=== PATIENT | male | born 1970 | race Caucasian/White ===

== ENCOUNTER 2019-04-16 08:51 | Inpatient (IN) | payer MEDICARE ==
[2019-04-16] MEDS ORDERED: SODIUM CHLORIDE 0.9% 1,000 ML IV STA (09:03)
[2019-04-16] MEDS ORDERED: LORazepam 2 MG/ML INJ IV STA (09:16)
[2019-04-16] MEDS ORDERED: MORPHINE SULFATE 4 MG/ML SYRINGE IV STA (09:17)
--- NOTE | 2019-04-16 09:22 | ED ---
General Adult HPI - General Chief complaint: Psychiatric Symptoms Stated complaint: Mental Health Time Seen by Provider: 04/16/19 08:56 Source: patient Mode of arrival: ambulatory Limitations: no limitations - History of Present Illness Initial comments: Dictation was produced using [employer] dictation software. please excuse any gramma tical, word or spelling errors. Chief Complaint: 48-year-old male past medical history multiple sclerosis presents with suicidal ideation. History of Present Illness: 48-year-old male presents with suicidal ideation. He wants to harm himself. Patient has history of multiple sclerosis. He has pain all over his body. Patient is not on any medications currently. He denies that he is supposed to be on any medications currently. Patient states that he is depressed because he has pain all over his body. He has been admitted to the hospital for suicidal ideation in the past. Patient states he second tired of the chronic pain. He wants to drive his car into the water. Denies any visual or auditory hallucinations. Patient has no new complaints at this time. The ROS documented in this emergency department record has been reviewed and confirmed by me. Those systems with pertinent positive or negative responses have been documented in the HPI. All other systems are other negative and/or noncontributory. PHYSICAL EXAM: General Impression: Alert and oriented x3, not in acute distress HEENT: Normocephalic atraumatic, extra-ocular movements intact, pupils equal and reactive to light bilaterally, mucous membranes moist. Cardiovascular: Heart regular rate and rhythm, S1&S2 audible, no murmurs, rubs or gallops Chest: Lungs clear to auscultation bilaterally, no rhonchi, no wheeze, no rales Abdomen: Bowel sounds present, abdomen soft, non-tender, non-distended, no org anomegaly Musculoskeletal: Pulses present and equal in all extremities, no peripheral edema Motor: no focal deficits noted Neurological: CN II-XII grossly intact, no focal motor or sensory deficits noted Skin: Intact with no visualized rashes Psych: Flat affect ED course: 48 yo Male presents with suicidal ideation. As upon arrival shows heart rate of 127, worse vital signs within acceptable limits. he has detailed suicidal intention. Patient given intravenous fluids. He states that he has significant pain. He is given analgesia and anxiolytics. Patient was observed in emergency department for several hours. He was cleared medically. Patient evaluated by EPS recommended inpatient admission. - Related Data Home Medications Medication Instructions Recorded Confirmed Atorvastatin Calcium [Lipitor] 10 mg PO DAILY 04/16/19 04/16/19 DULoxetine HCL [Cymbalta] 30 mg PO TID 04/16/19 04/16/19 Allergies Allergy/AdvReac Type Severity Reaction Status Date / Time Latex, Natural Rubber Allergy Rash/Hives Verified 04/16/19 11:30 metronidazole [From Flagyl] Allergy Unknown Verified 04/16/19 11:30 Review of Systems ROS Statement: Those systems with pertinent positive or pertinent negative responses have been documented in the HPI. ROS Other: All systems not noted in ROS Statement are negative. Past Medical History Past Medical History: GERD/Reflux, Neurologic Disorder Additional Past Medical History / Comment(s): ms History of Any Multi-Drug Resistant Organisms: None Reported Past Surgical History: No Surgical Hx Reported Past Psychological History: Anxiety, Depression, Panic Disorder Smoking Status: Current every day smoker Past Alcohol Use History: Rare Past Drug Use History: Marijuana General Exam Limitations: no limitations Course Vital Signs 04/16/19 08:59 Temperature 97.8 F Pulse Rate 127 H Respiratory 16 Rate Blood Pressure 146/89 O2 Sat by Pulse 97 Oximetry Medical Decision Making - Lab Data Result diagrams: 04/17/19 07:29 04/17/19 07:29 Lab Results 04/16/19 04/16/19 04/16/19 Range/Units 09:27 09:27 11:59 WBC 8.1 (3.8-10.6) k/uL RBC 4.73 (4.30-5.90) m/uL Hgb 14.9 (13.0-17.5) gm/dL Hct 44.9 (39.0-53.0) % MCV 94.9 (80.0-100.0) fL MCH 31.6 (25.0-35.0) pg MCHC 33.3 (31.0-37.0) g/dL RDW 13.5 (11.5-15.5) % Plt Count 315 (150-450) k/uL Neutrophils % 58 % Lymphocytes % 30 % Monocytes % 7 % Eosinophils % 2 % Basophils % 2 % Neutrophils # 4.7 (1.3-7.7) k/uL Lymphocytes # 2.4 (1.0-4.8) k/uL Monocytes # 0.6 (0-1.0) k/uL Eosinophils # 0.2 (0-0.7) k/uL Basophils # 0.1 (0-0.2) k/uL Sodium 140 (137-145) mmol/L Potassium 3.8 (3.5-5.1) mmol/L Chloride 106 (98-107) mmol/L Carbon Dioxide 24 (22-30) mmol/L Anion Gap 10 mmol/L BUN 14 (9-20) mg/dL Creatinine 0.70 (0.66-1.25) mg/dL Est GFR (CKD-EPI)AfAm >90 (>60 ml/min/1.73 sqM) Est GFR (CKD-EPI)NonAf >90 (>60 ml/min/1.73 sqM) Glucose 113 H (74-99) mg/dL Calcium 10.3 H (8.4-10.2) mg/dL Urine Color Light Yellow Urine Appearance Clear (Clear) Urine pH 7.5 (5.0-8.0) Ur Specific [place] 1.006 (1.001-1.035) Urine Protein Negative (Negative) Urine Glucose (UA) Negative (Negative) Urine Ketones Negative (Negative) Urine Blood Negative (Negative) Urine Nitrite Negative (Negative) Urine Bilirubin Negative (Negative) Urine Urobilinogen <2.0 (<2.0) mg/dL Ur Leukocyte Esterase Negative (Negative) Disposition Clinical Impression: Suicidal ideation Disposition: ADMITTED IP TO THIS [facility] Condition: Fair Decision Time: 06:58
[2019-04-16 09:39] LABS: Basophils # (A) 0.1 k/uL (0-0.2); Basophils % (A) 2 %; Eosinophils # (A) 0.2 k/uL (0-0.7); Eosinophils % (A) 2 %; HCT 44.9 % (39.0-53.0); HGB 14.9 gm/dL (13.0-17.5); Lymphocytes # (A) 2.4 k/uL (1.0-4.8); Lymphocytes % (A) 30 %; MCH 31.6 pg (25.0-35.0); MCHC 33.3 g/dL (31.0-37.0); MCV 94.9 fL (80.0-100.0); Mean Platelet Volume 6.3; Monocytes # (A) 0.6 k/uL (0-1.0); Monocytes % (A) 7 %; Neutrophils # (A) 4.7 k/uL (1.3-7.7); Neutrophils % (A) 58 %; Platelet Count 315 k/uL (150-450); RBC 4.73 m/uL (4.30-5.90); RDW 13.5 % (11.5-15.5); WBC 8.1 k/uL (3.8-10.6)
[2019-04-16 09:53] LABS: African American GFR (CKD) >90 (>60 ml/min/1.73 sqM); Anion Gap 10 mmol/L; Blood Urea Nitrogen 14 mg/dL (9-20); Calcium 10.3 mg/dL (8.4-10.2); Carbon Dioxide 24 mmol/L (22-30); Chloride 106 mmol/L (98-107); Glucose 113 mg/dL (74-99); Potassium 3.8 mmol/L (3.5-5.1); Sodium 140 mmol/L (137-145)
[2019-04-16 12:28] LABS: Appearance,Urine Clear (Clear); Bilirubin,Urine Negative (Negative); Blood,Urine Negative (Negative); Color,Urine Light Yellow; Glucose,Urine (UA) Negative (Negative); Ketones,Urine Negative (Negative); Leukocyte Esterase,Urine Negative (Negative); Nitrite,Urine Negative (Negative); PH, Urine 7.5 (5.0-8.0); Protein,Urine Negative (Negative); Specific Gravity,Urine 1.006 (1.001-1.035); Urobilinogen,Urine <2.0 mg/dL (<2.0)
[2019-04-16] MEDS ORDERED: ZIPRASIDONE 20 MG VIAL IM PRN (14:57)
[2019-04-17 08:16] LABS: Basophils # (A) 0.1 k/uL (0-0.2); Basophils % (A) 1 %; Eosinophils # (A) 0.2 k/uL (0-0.7); Eosinophils % (A) 2 %; HCT 46.2 % (39.0-53.0); HGB 15.7 gm/dL (13.0-17.5); Lymphocytes # (A) 3.1 k/uL (1.0-4.8); Lymphocytes % (A) 38 %; MCH 32.8 pg (25.0-35.0); MCHC 33.9 g/dL (31.0-37.0); MCV 96.6 fL (80.0-100.0); Mean Platelet Volume 5.7; Monocytes # (A) 0.5 k/uL (0-1.0); Monocytes % (A) 6 %; Neutrophils # (A) 4.2 k/uL (1.3-7.7); Neutrophils % (A) 51 %; Platelet Count 298 k/uL (150-450); RBC 4.78 m/uL (4.30-5.90); RDW 13.3 % (11.5-15.5); WBC 8.2 k/uL (3.8-10.6)
[2019-04-17] MEDS: NICOTINE 14MG/24HR PATCH TRANSDERM SCH (08:24)
[2019-04-17 08:37] LABS: ALT 18 U/L (21-72); AST 23 U/L (17-59); African American GFR (CKD) >90 (>60 ml/min/1.73 sqM); Albumin 4.8 g/dL (3.5-5.0); Alkaline Phosphatase 72 U/L (38-126); Anion Gap 11 mmol/L; Blood Urea Nitrogen 14 mg/dL (9-20); Calcium 10.1 mg/dL (8.4-10.2); Carbon Dioxide 27 mmol/L (22-30); Chloride 106 mmol/L (98-107); Cholesterol 243 mg/dL (<200); Glucose 90 mg/dL (74-99); HDL Cholesterol 34 mg/dL (40-60); LDL Cholesterol,Calculated 183 mg/dL (0-99); Potassium 4.1 mmol/L (3.5-5.1); Sodium 144 mmol/L (137-145); Total Protein 7.5 g/dL (6.3-8.2); Triglycerides 128 mg/dL (<150)
[2019-04-17 12:54] VITALS: BMI 20.3
[2019-04-17] MEDS: DULoxetine HCL 30 MG CAPSULE.DR PO SCH (13:56)
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
[2019-04-17 14:23] LABS: Hemoglobin A1C 5.5 % (4.0-6.0)
--- NOTE | 2019-04-17 17:22 | P.MDCNMH ---
History of Present Illness H&P Date: 04/17/19 Chief Complaint: Whole body aches 48-year-old male with PMH of multiple sclerosis presents to the ED for suicidal ideation. [facility] physicians has been consulted for medical management of this patient. Patient reports left shoulder pain that has been ongoing for the past 2 years. He describes the pain as muscular soreness. Patient reports being started on OxyContin, fentanyl and Botox in the past, "years ago"while he was followed by pain clinic. Patient reports occipital headache that is also chronic in nature. Patient reports difficulty ambulating due to chronic left-sided weakness, ambulates with a wheelchair. The pain in his shoulder radiates down to the thum b. Patient states that these problems are chronic and has been ongoing for many years. Patient reports numbness in his bilateral lower extremity. He also reports some difficulty initiating urination. Patient reports constipation as his last bowel movement one was 1 week ago. Patient reports seeing a neurologist in the past, Dr. Chao but has not been able to see him in the last couple of years. He does report having an appointment on April 27 at [facility] in [place]. He denies any lower extremity edema, nausea or vomiting, fever or chills, cough, chest pain, shortness of breath. No changes in appetite or weight. Patient denies any dizziness as well. His vital signs have been stable except for tachycardia with a pulse of 127. His CBC was within normal limits. CMP is also within normal limits. Lipid panel shows total cholesterol 243, LDL 183. Urinalysis was negative. EKG showed normal sinus rhythm. Review of Systems Pertinent positives and negatives as discussed in HPI, a complete review of sy stems was performed and all other systems are negative. Past Medical History Past Medical History: GERD/Reflux, Neurologic Disorder Additional Past Medical History / Comment(s): ms History of Any Multi-Drug Resistant Organisms: None Reported Past Surgical History: No Surgical Hx Reported Past Anesthesia/Blood Transfusion Reactions: No Reported Reaction Past Psychological History: Anxiety, Depression, Panic Disorder Smoking Status: Current every day smoker Past Alcohol Use History: Rare Past Drug Use History: Marijuana Additional Drug Use History / Comment(s): not using currently. Medications and Allergies Home Medications Medication Instructions Recorded Confirmed Type Atorvastatin Calcium [Lipitor] 10 mg PO DAILY 04/16/19 04/16/19 History DULoxetine HCL [Cymbalta] 30 mg PO TID 04/16/19 04/16/19 History Allergies Allergy/AdvReac Type Severity Reaction Status Date / Time Latex, Natural Rubber Allergy Rash/Hives Verified 04/16/19 11:30 metronidazole [From Flagyl] Allergy Unknown Verified 04/16/19 11:30 Physical Exam Vitals: Vital Signs Temp Pulse Resp BP 04/17/19 06:52 97.6 F 108 H 18 127/65 Intake and Output 04/17/19 04/17/19 04/17/19 06:59 14:59 22:59 Other: Weight 68.039 kg General: [non toxic], [tremulous], [appears at stated age] Derm: [warm], [dry] Head: [atraumatic], [normocephalic], [symmetric] Eyes: [EOMI], [no lid lag], [anicteric sclera] Mouth: [no lip lesion], [mucus membranes moist] Cardiovascular: [S1S2 reg], [no murmur], [positive DP pulse bilateral], Lungs: [CTA bilateral], [no rhonchi, no rales] , [no accessory muscle use] Abdominal: [soft], [ nontender to palpation], [no guarding], [no appreciable organomegaly] Ext: [no gross muscle atrophy], [no edema], [limited range of motion of the left shoulder due to pain] Neuro: [ CN II-XI grossly intact], [strength is 2 out of 5 in the left upper and lower extremities, 5 out of 5 in the right upper and lower extremities], [sensation is intact to touch but decreased on the left side] Psych: [Alert], [oriented], [appropriate affect] Cranial Nerve Examination - Cranial Nerves Cranial Nerve II- Optic: Intact Cranial Nerve III- Oculomotor: Intact Cranial Nerve IV- Trochlear: Intact Cranial Nerve V- Trigeminal: Intact Cranial Nerve - Abducens: Intact Cranial Nerve VII- Facial: Intact Cranial Nerve VIII- Auditory: Intact Cranial Nerve IX- Glossopharyngeal: Intact Cranial Nerve X- Vagus: Intact Cranial Nerve XI- Accessory: Intact Cranial Nerve XII- Hypoglossal: Intact Results CBC & Chem 7: 04/17/19 07:29 04/17/19 07:29 Labs: Abnormal Lab Results - Last 24 Hours (Table) 04/17/19 Range/Units 07:29 ALT 18 L (21-72) U/L Cholesterol 243 H (<200) mg/dL LDL Cholesterol, Calc 183 H (0-99) mg/dL HDL Cholesterol 34 L (40-60) mg/dL Assessment and Plan Assessment: Assessment and Plan Multiple sclerosis with chronic left-sided weakness and numbness in the bilateral lower extremities Hyperlipidemia Constipation Patient has a history of multiple sclerosis for which he used to follow-up with Dr. Chao but has been unable to do so in the past 2 years. Plans: He has an appointment with [facility] in [place] on . If patient is unable to make it to this appointment, please consider rescheduling. His symptoms of left-sided weakness and numbness in the bilateral lower extremities has been chronic and ongoing for the past 2 years and as such I do not believe this is a flare. I believe we should continue to monitor the patient at this time. He would benefit from physical therapy and occupational therapy. He would also benefit from antispastic medication such as baclofen and pain control. I will defer this decision to psychiatry. He is been noted to have elevated cholesterol. He has been started on Lipitor 10 mg by mouth at bedtime. Patient reports his last bowel movement was 1 week ago. Aggressive bowel regimen with milk of magnesia as needed will be started. Thank you for this consult. Please call with any additional questions or concerns.
[2019-04-18] MEDS: MAGNESIUM HYDROXIDE 2,400 MG/10 ML CUP PO PRN (06:47)
[2019-04-18] MEDS: NICOTINE 14MG/24HR PATCH TRANSDERM SCH (07:51)
[2019-04-18] MEDS: ATORVASTATIN 10 MG TAB PO SCH (07:51)
[2019-04-18] MEDS: DULoxetine HCL 30 MG CAPSULE.DR PO SCH (07:51)
[2019-04-18] MEDS: LORazepam 1 MG TAB PO PRN (07:52)
--- NOTE | 2019-04-18 12:53 | P.PN ---
Progress Note - Text Interval history: The patient is found in his room he follows me to an interview room. He indicates his mood is a little better he feels safe. He has no questions or concerns regarding the medication. We plan on titrating the Cymbalta to 120 mg today and he is agreeable. He has not been attending many groups he is encouraged to do so to maximize his treatment here and to allow us to fully evaluate him. He did have a visit from his stepson last evening which was supportive. He describes having difficulty with constipation. Mental status exam: The patient is a thin male he is mobile with a wheelchair. He is dressed in his own clothing. Hygiene grooming adequate. Speech is fluent spontaneous nonpressured. He does appear more calm than yesterday. He endorses a depressed mood with anxiety. He reports feeling safe here in the hospital in terms of suicidal thoughts. He indicates he doesn't really want to but was feeling hopeless. He demonstrates no evidence of any psychosis hypomania or judson. He demonstrates no verbal or physical aggressiveness. Affect is constricted throughout the session. Plan: The patient will continue on the Cymbalta we will titrate this to 120 mg daily. We will ask for some recommendations regarding his ongoing constipation from internal medicine. Vital signs reviewed. We will monitor him for safety. He is encouraged to participate in the milieu more fully.
[2019-04-18] MEDS: DULoxetine HCL 30 MG CAPSULE.DR PO ONE ×2 (13:05→13:06)
[2019-04-18] MEDS: MAG HYDROX/AL HYDROX/SIMETH 30 ML CUP PO PRN (13:07)
[2019-04-19] MEDS: NICOTINE 14MG/24HR PATCH TRANSDERM SCH (08:55)
[2019-04-19] MEDS: ATORVASTATIN 10 MG TAB PO SCH (08:56)
[2019-04-19] MEDS: LORazepam 1 MG TAB PO PRN (08:57)
[2019-04-19] MEDS: DULoxetine HCL 60 MG CAPSULE.DR PO SCH (08:59)
[2019-04-19] MEDS ORDERED: BACLOFEN 10 MG TAB PO PRN ×2 (13:55→14:55)
--- NOTE | 2019-04-19 14:54 | P.PN ---
Progress Note - Text Progress Note Date: 04/19/19 Interval History: Patient was seen in the [facility] watching TV and reading and was agreeable to sp cliffordk to sba underwriter in the office. Patient was cooperative and directable during conversation and spoke about the circumstances behind his presentation to the hospital. He states that he has been feeling chronically depressed since being diagnosed with MS approximately 7 years ago. He states that he does have significant pain and muscle spasticity and has been noticing an increase in his symptoms associated with MS as he has been off treatment and has not seen a neurologist in quite some time. He states that he was self-medicating with cannabis. Patient claims that his depression has been increasing and was having suicidal thoughts. He states that his Cymbalta was recently increased to 120 mg today. Patient continues to complain of anxiety and muscle spasms. He also describes poor sleep approximately 2 hours at night. He states that he's only been to a few groups. At this time patient denies any suicidal or homical ideations, intent or plan. Patient denies any auditory, visual hallucinations and denies any paranoia or delusions. Patient denies any side effects from the medications and has been compliant with meds. Mental Status Exam: General Appearance: Patient appears to be stated age is alert, directable, and cooperative. Patient is in a wheelchair and does have mild tremors in his hands. Marginal hygiene and grooming. Behavior: Patient is calmly seated without any agitated behavior. Speech: Patient's speech is fluent and nonpressured. Mood/Affect: Mood is improving mildly, affect is congruent and constricted. Significant anxiety. Suicidality/Homicidality: Patient denies having any suicidal or homicidal ideation intent or plan. Perceptions: Patient denies any auditory or visual hallucinations. Though content/process: There is no evidence of any delusional thought content and thought process is linear and goal-directed. Memory and concentration: AOX3, grossly intact for the purposes of this session Judgment and insight: fair Assessment Major depressive disorder, recurrent, severe Anxiety disorder unspecified Cannabis use disorder Nicotine dependence Plan: -Patient continues to meet criteria for inpatient psychiatric admission for symptom stabilization and safety. Patient has signed adult voluntary form and medication consent and was placed in patient's chart. -Medications: Cymbalta was increased to 120 mg daily for depression. Will start patient on baclofen 5 mg 3 times a day for muscle spasms associated with his MS. We'll also start patient on BuSpar 10 mg twice a day for anxiety and trazodone 25 mg daily at bedtime for insomnia and mood. -Patient has a follow-up appointment scheduled with [facility] on 04/27/2019. -When necessary Ativan for agitation/aggression. -NRT - nicotine patch -SW on board for discharge planning.
[2019-04-19] MEDS ORDERED: BACLOFEN 10 MG TAB PO SCH (16:00)
[2019-04-19] MEDS: BACLOFEN 10 MG TAB PO SCH (20:41)
[2019-04-19] MEDS: busPIRone HCl 10 MG TAB PO SCH (20:41)
[2019-04-19] MEDS ORDERED: traZODone HCL 50 MG TAB PO SCH (21:00)
[2019-04-19] MEDS: PANTOPRAZOLE 40 MG TABLET PO SCH (22:01)
[2019-04-20] MEDS: NICOTINE 14MG/24HR PATCH TRANSDERM SCH (08:23)
[2019-04-20] MEDS: busPIRone HCl 10 MG TAB PO SCH (08:24)
[2019-04-20] MEDS: BACLOFEN 10 MG TAB PO SCH ×2 (08:24→20:47)
[2019-04-20] MEDS: ATORVASTATIN 10 MG TAB PO SCH (08:24)
[2019-04-20] MEDS: DULoxetine HCL 60 MG CAPSULE.DR PO SCH (08:24)
--- NOTE | 2019-04-20 11:32 | P.PN ---
Progress Note - Text Progress Note Date: 04/20/19 Interval History: Patient was seen laying down in his bed and was agreeable to speak to automobile and property underwriter in the office. Patient was cooperative and directable during conversation this morning however appear to continue to have a depressed affect. Patient did state that she feels mild improvement with regards to his depression however feels that his anxiety is still a problem for him. Patient did claim that his sleep was improved last night however was requesting to have his trazodone increased to 50 mg. He states that he was trying to go to groups yesterday and will continue to try today depending on how he is feeling. He states that his muscle spasms continue and may have seen some mild improvement. Patient also stated that he had some restless leg yesterday at daytime. At this time patient denies any suicidal or homical ideations, intent or plan. Patient denies any auditory, visual hallucinations and denies any paranoia or delusions. Patient denies any side effects from the medications and has been compliant with meds. Mental Status Exam: General Appearance: Patient appears to be stated age is alert, directable, and cooperative. Patient is in a wheelchair and does have mild tremors in his hands. Marginal hygiene and grooming. Behavior: Patient is calmly seated without any agitated behavior. Speech: Patient's speech is fluent and nonpressured. Mood/Affect: Mood is improving mildly, affect is congruent and constricted. Significant anxiety. Suicidality/Homicidality: Patient denies having any suicidal or homicidal ideation intent or plan. Perceptions: Patient denies any auditory or visual hallucinations. Though content/process: There is no evidence of any delusional thought content and thought process is linear and goal-directed. Memory and concentration: AOX3, grossly intact for the purposes of this session Judgment and insight: fair Assessment Major depressive disorder, recurrent, severe Anxiety disorder unspecified Cannabis use disorder Nicotine dependence Plan: -Patient continues to meet criteria for inpatient psychiatric admission for symptom stabilization and safety. Patient has signed adult voluntary form and medication consent and was placed in patient's chart. -Medications: Cymbalta 120 mg daily for depression. Will continue with baclofen 5 mg 3 times a day for muscle spasms associated with his MS. We'll increase BuSpar 15 mg twice a day for anxiety and increase trazodone 50 mg daily at bedtime for insomnia and mood. -Patient has a follow-up appointment scheduled with [place] [facility] on 04/27/2019. -When necessary Ativan for agitation/aggression. -NRT - nicotine patch -Patient was encouraged to partake in groups during the day work on his coping skills and distress tolerance. -SW on board for discharge planning.
[2019-04-20] MEDS: busPIRone HCl 5 MG TAB PO SCH ×2 (13:23→20:47)
[2019-04-20] MEDS: PANTOPRAZOLE 40 MG TABLET PO SCH (20:47)
[2019-04-20] MEDS: traZODone HCL 50 MG TAB PO SCH (20:47)
[2019-04-21] MEDS: BACLOFEN 10 MG TAB PO SCH ×3 (08:17→20:50)
[2019-04-21] MEDS: DULoxetine HCL 60 MG CAPSULE.DR PO SCH (08:17)
[2019-04-21] MEDS: busPIRone HCl 5 MG TAB PO SCH ×2 (08:17→20:50)
[2019-04-21] MEDS: NICOTINE 14MG/24HR PATCH TRANSDERM SCH (08:17)
[2019-04-21] MEDS: ATORVASTATIN 10 MG TAB PO SCH (08:18)
--- NOTE | 2019-04-21 11:30 | P.PN ---
Progress Note - Text Progress Note Date: 04/21/19 Interval History: Patient was seen laying down in his bed and was agreeable to speak to song writer in the office this morning. Patient was cooperative and directable during conversation has a mildly improved affect. Patient continues to state that he is feeling somewhat better with regards to his depression and his anxiety and feels that the medications are starting to work for him. Patient stated that she did hear a lot of noise in the hallway when the new patients arrived which was disruptive to his sleep however did state that he was able to sleep after that. He states that he did attend groups yesterday and is finding them helpful in his recovery. He states that his muscle spasms continue however are mildly improving, and now is complaining of some difficulties with urinary retention and also pain related to his MS. Patient states that he would like to have an evaluation/consult by the neurologist for any further recommendations. He states his energy level and appetite are fair. At this time patient denies any suicidal or homical ideations, intent or plan. Patient denies any auditory, visual hallucinations and denies any paranoia or delusions. Patient denies any side effects from the medications and has been compliant with meds. Mental Status Exam: General Appearance: Patient appears to be stated age is alert, directable, and cooperative. Patient is in a wheelchair and shows an improvement in tremors in his hands. Marginal hygiene and grooming. Behavior: Patient is calmly seated without any agitated behavior. Speech: Patient's speech is fluent and nonpressured. Mood/Affect: Mood is improving mildly, affect is congruent and constricted. Less anxiety. Suicidality/Homicidality: Patient denies having any suicidal or homicidal ideation intent or plan. Perceptions: Patient denies any auditory or visual hallucinations. Though content/process: There is no evidence of any delusional thought content and thought process is linear and goal-directed. Memory and concentration: AOX3, grossly intact for the purposes of this session Judgment and insight: fair, improving mildly Assessment Major depressive disorder, recurrent, severe Anxiety disorder unspecified Cannabis use disorder Nicotine dependence Plan: -Patient continues to meet criteria for inpatient psychiatric admission for symptom stabilization and safety. Patient has signed adult voluntary form and medication consent and was placed in patient's chart. -Medications: Cymbalta 120 mg daily for depression. Will continue with baclofen 5 mg 2 times a day for muscle spasms associated with his MS. We'll continue with BuSpar 15 mg twice a day for anxiety and continue with trazodone 50 mg daily at bedtime for insomnia and mood. -Neurology consult to for pain, muscle spasms and urinary retention related to patient's MS. -Patient has a follow-up appointment scheduled with [place] [facility] on 04/27/2019. -When necessary Ativan for agitation/aggression. -NRT - nicotine patch -Patient was encouraged to partake in groups during the day work on his coping skills and distress tolerance. -SW on board for discharge planning.
[2019-04-21] MEDS ORDERED: BACLOFEN 10 MG TAB PO PRN (15:48)
[2019-04-21] MEDS: PANTOPRAZOLE 40 MG TABLET PO SCH (20:50)
[2019-04-21] MEDS: traZODone HCL 50 MG TAB PO SCH (20:50)
--- NOTE | 2019-04-21 22:18 | P.CNNES ---
History of Present Illness Consult date: 04/21/19 Reason for Consult: Muscle spasm, pain, urine retention, multiple sclerosis Chief complaint: Muscle spasm, pain, urine retention, multiple sclerosis History of Present Illness: HISTORY OF PRESENT ILLNESS: Thank you for allowing me to evaluate Mr. Urbano Lopez. Mr. Lopez, is a 48-year-old man with past medical history of multiple sclerosis, GERD, anxiety, depression, panic disorder, hyperlipidemia, who presented to [facility] for suicidal ideation, consulted neurology for muscle spasm, pain and urinary retention. Patient states that he was diagnosed with MS is 2011. He was treated with avonex, betaseron and copaxone initially, but patient stopped seeing his neurologist and getting treatment for MS after he moved to [facility] from [place] several years ago (states he moved for his girlfriend). Patient reports that his symptoms were always L-sided with pain and numbness/tingling. His flares always involved worsening L-sided pain/numbness along with tremor, and patient believes that he's having an MS flare at this time. Patient was treated with steroids previously for his MS flares, but his L-sided symptoms never fully recovered. Patient denies any recent sickness, fevers, diarrhea, constipation, double/blurry vision, coughing, CP, or SOB. PAST MEDICAL HISTORY: Multiple sclerosis, GERD, anxiety, depression, panic disorder, hyperlipidemia PAST SURGICAL HISTORY: None reported HOME MEDICATIONS: Duloxetine, atorvastatin ALLERGIES: Latex, rubber, metronidazole SOCIAL HISTORY: Current every day smoker. Social drinker. He endorses marijuana use REVIEW OF SYSTEMS: The 14 systems are reviewed and no additional points are identified compared to the review of systems documented history and physical PHYSICAL EXAMINATION: VITAL SIGNS: T 97.7 HR 101 RR 16 BP 135/74 O2 sat 94% on RA GEN.: NAD, pleasant and cooperative HEENT: NCAT, sclera without icterus NECK: Supple SKIN AND EXTREMITIES: Warm to touch, no edema NEURO: MENTAL STATUS: [Patient alert and oriented to self, place, time. Able to name the current president. Speech fluent, able to name and repeat, following all commands readily. No right and left disorientation, neglect. CRANIAL NERVES II THROUGH XII: II: Pupils are equal and reactive to light symmetrically. No afferent pupillary defect. Visual higginbotham are intact. III, IV, : No ptosis. Extraocular movements full. No nystagmus. V: Facial sensation decreased in L V2. VII. No clear facial asymmetry. VIII: Hearing intact to finger rub bilaterally. IX, X: Symmetric palate elevation. XI: Shoulder shrug intact. XII: Tongue midline without fasciculation or atrophy. MOTOR: Normal bulk/tone. LUE drifts down and RUE drifts up. Whole-body tremor, more in UE than LE but switches and diminishes when patient focused (i.e. naming names of the month backwards). LUE 4/5 RUE 5/5 but no satelliting. 4/5 in b/l LE. SENSORY: Decreased to light touch in LUE and LLE. REFLEXES: 2+ throughout. Toes are downgoing. COORDINATION: Finger to nose intact but with action tremor. No dysmetria. GAIT: Patient able to stand with moderate support. Also able to take a few steps forward on his own. DIAGNOSTIC TESTING: LABORATORY: 04/17/2019: WBC 8.2 hemoglobin 15.7 platelet 298 sodium 144 chloride 4.1 bicarb 27 BUN 14 creatinine 0.82 glucose 90 AST 23 ALT 18 Total cholesterol 243 LDL 183 HDL 34 triglycerides 128 urinalysis negative IMAGING: No brain imaging available at this time. ASSESSMENT: Mr. Lopez, is a 48-year-old man with past medical history of multiple sclerosis, GERD, anxiety, depression, panic disorder, hyperlipidemia, who presented to [facility] for suicidal ideation, consulted neurology for muscle spasm, pain and urinary retention. Patient with subjective L-sided numbness, weakness and pain, which patient endorses occurs with his usual MS flare. At this time, there is no previous medical record of patient's diagnosis of MS and treatment. RECOMMENDATIONS: 1. Will start with MRI brain w/ and w/o contrast. If there's evidence of acute MS flare, will start treatment with IV steroids 2. Baclofen 5mg TID for muscle spasm is okay 3. Neurology will continue to follow. 4. Patient states that he has an appointment with Neurology on 04/27/19. Okay to keep this appointment. Past Medical History Past Medical History: GERD/Reflux, Neurologic Disorder Additional Past Medical History / Comment(s): ms History of Any Multi-Drug Resistant Organisms: None Reported Past Surgical History: No Surgical Hx Reported Past Anesthesia/Blood Transfusion Reactions: No Reported Reaction Past Psychological History: Anxiety, Depression, Panic Disorder Smoking Status: Current every day smoker Past Alcohol Use History: Rare Past Drug Use History: Marijuana Additional Drug Use History / Comment(s): not using currently. Medications and Allergies Home Medications Medication Instructions Recorded Confirmed Type Atorvastatin Calcium [Lipitor] 10 mg PO DAILY 04/16/19 04/16/19 History DULoxetine HCL [Cymbalta] 30 mg PO TID 04/16/19 04/16/19 History Allergies Allergy/AdvReac Type Severity Reaction Status Date / Time Latex, Natural Rubber Allergy Rash/Hives Verified 04/16/19 11:30 metronidazole [From Flagyl] Allergy Unknown Verified 04/16/19 11:30 Physical Examination - Vital Signs Vital Signs: Vital Signs Temp Pulse Resp BP 04/21/19 06:51 97.7 F 101 H 16 135/74 Results - Laboratory Findings CBC and BMP: 04/17/19 07:29 04/17/19 07:29 Abnormal Lab Findings: Abnormal Labs 04/16/19 04/17/19 09:27 07:29 Glucose 113 H Calcium 10.3 H ALT 18 L Cholesterol 243 H LDL Cholesterol, Calc 183 H HDL Cholesterol 34 L
[2019-04-22] MEDS ORDERED: ACETAMINOPHEN TAB 325 MG TAB PO PRN (01:10)
[2019-04-22] MEDS: LORazepam 1 MG TAB PO PRN (01:21)
[2019-04-22] MEDS: NICOTINE 14MG/24HR PATCH TRANSDERM SCH (07:47)
[2019-04-22] MEDS: busPIRone HCl 5 MG TAB PO SCH (07:47)
[2019-04-22] MEDS: ATORVASTATIN 10 MG TAB PO SCH (07:48)
[2019-04-22] MEDS: DULoxetine HCL 60 MG CAPSULE.DR PO SCH (07:48)
[2019-04-22] MEDS: BACLOFEN 10 MG TAB PO SCH ×3 (07:48→21:03)
--- NOTE | 2019-04-22 09:59 | P.PN ---
Progress Note - Text Progress Note Date: 04/22/19 Interval History: Patient was seen in the [facility] area and was agreeable to speak to job specification writer in the office this morning. Patient was cooperative and directable today and appeared to have a brighter affect. Patient was also noted to be conversing with another patient prior to speaking with job specification writer. Patient continues to state that his mood and his anxiety are improving and feels that the medications are working for him. Patient stated that she did not sleep well last night secondary to pain in his back and limbs from his MS. Patient was requesting something for his pain at night when it is the worst. He states that he is attempting to participate in groups as best as he can. He states that his muscle spasms have improved moderately however patient continues to have some difficulties with urinary retention. Patient states that he will be going for the MRI of his brain today to see if there is an active MS flare at this time. He states his energy level and appetite are fair. At this time patient denies any suicidal or homical ideations, intent or plan. Patient denies any auditory, visual hallucinations and denies any paranoia or delusions. Patient denies any side effects from the medications and has been compliant with meds. Mental Status Exam: General Appearance: Patient appears to be stated age is alert, directable, and cooperative. Patient is in a wheelchair and shows an improvement in tremors in his hands. Improvement in hygiene and grooming. Behavior: Patient is calmly seated without any agitated behavior. Speech: Patient's speech is fluent and nonpressured. Mood/Affect: Mood is improving mildly, affect is congruent and constricted. Suicidality/Homicidality: Patient denies having any suicidal or homicidal ideation intent or plan. Perceptions: Patient denies any auditory or visual hallucinations. Though content/process: There is no evidence of any delusional thought content and thought process is linear and goal-directed. Memory and concentration: AOX3, grossly intact for the purposes of this session Judgment and insight: fair, improving mildly Assessment Major depressive disorder, recurrent, severe Anxiety disorder unspecified Cannabis use disorder Nicotine dependence Plan: -Patient continues to meet criteria for inpatient psychiatric admission for symptom stabilization and safety. Patient has signed adult voluntary form and medication consent and was placed in patient's chart. -Medications: Cymbalta 120 mg daily for depression. Will continue with baclofen 5 mg 2 times a day for muscle spasms associated with his MS. We'll increase BuSpar 20 mg twice a day for anxiety and increase trazodone 100 mg daily at bedtime for insomnia and mood. -Appreciate Neurology recommendations. Patient will have an MRI brain with and without contrast today to investigate if there is an active MS flare. -Patient has a follow-up appointment scheduled with [place] [facility] on 04/27/2019. -When necessary Ativan for agitation/aggression. -NRT - nicotine patch -Patient was encouraged to partake in groups during the day work on his coping skills and distress tolerance. -SW on board for discharge planning. Likely discharge her early next week.
--- NOTE | 2019-04-22 14:31 | MR ---
EXAMINATION TYPE: MR brain wo/w con DATE OF EXAM: 04/22/2019 COMPARISON: NONE HISTORY: Weakness, tremors, poss MS flare up TECHNIQUE: Multiplanar, multisequence images of the brain and brainstem is performed without and with IV contras t, utilizing 7.5 mL intravenous Gadavist gadolinium contrast is administered intravenously. Demyelin ating disease protocol with additional Sagittal Flair sequence performed. FINDINGS: T2 Lesions Present : Yes Approximate Number of Lesions: Approximately 50 Locations Identified : Scattered predominantly small Size of Reference Lesion(s): Axial image 22 shows 3 adjacent right frontal lesions measuring 3 to 5 mm long axis. Enhancing Lesion(s) Present: No T1 Hypointense Lesion(s) Present: Yes Change from Prior: N/A Diffusion weighted images demonstrate no evidence of a recent infarct or other diffusion abnormality. There is no worrisome extra-axial fluid collection. The ventricular system and cisternal spaces ar e normal in size and appearance. The brain volume is age appropriate. Midline structures demonstrate normal morphology. The craniocervical junction appears within normal limits. Post contrast images demonstrate no abnormal enhancement. The dural venous sinuses appear pa tent. The visualized sinuses are clear and the globes are intact. IMPRESSION: Moderate nonspecific white matter changes may be on basis of known demyelinating disease. No enhancing lesions are evident.
[2019-04-22] MEDS: traZODone HCL 100 MG TAB PO SCH (21:02)
[2019-04-22] MEDS: busPIRone HCl 10 MG TAB PO SCH (21:02)
[2019-04-22] MEDS: PANTOPRAZOLE 40 MG TABLET PO SCH (21:02)
[2019-04-22] MEDS: GABAPENTIN 300 MG CAP PO SCH (21:02)
--- NOTE | 2019-04-22 21:06 | P.PN ---
Progress Note - Text Progress Note Date: 04/22/19 SUBJECTIVE/INTERVAL EVENTS: No acute overnight events. Patient states that his pain has improved and he feels better, but he still has some pain. Discussed with patient about MRI brain finding. Patient will be going to his neurology clinic appointment next friday. PHYSICAL EXAMINATION: VITAL SIGNS: T 97.7 HR 107 RR 18 BP 130/74 O2 sat 92% on RA GEN.: NAD, pleasant and cooperative HEENT: NCAT, sclera without icterus NECK: Supple SKIN AND EXTREMITIES: Warm to touch, no edema NEURO: MENTAL STATUS: [Patient alert and oriented to self, place, time. Able to name the current president. Speech fluent, able to name and repeat, following all commands readily. No right and left disorientation, neglect. CRANIAL NERVES II THROUGH XII: II: Pupils are equal and reactive to light symmetrically. No afferent pupillary defect. Visual higginbotham are intact. III, IV, : No ptosis. Extraocular movements full. No nystagmus. V: Facial sensation decreased in L V2. VII. No clear facial asymmetry. VIII: Hearing intact to finger rub bilaterally. IX, X: Symmetric palate elevation. XI: Shoulder shrug intact. XII: Tongue midline without fasciculation or atrophy. MOTOR: Normal bulk/tone. LUE drifts down and RUE drifts up. Whole-body tremor, more in UE than LE but switches and diminishes when patient focused (i.e. naming names of the month backwards). LUE 4/5 RUE 5/5 but no satelliting. 4/5 in b/l LE. SENSORY: Decreased to light touch in LUE and LLE. REFLEXES: 2+ throughout. Toes are downgoing. COORDINATION: Finger to nose intact but with action tremor. No dysmetria. GAIT: Patient able to stand with moderate support. Also able to take a few steps forward on his own. DIAGNOSTIC TESTING: LABORATORY: 04/17/2019: WBC 8.2 hemoglobin 15.7 platelet 298 sodium 144 chloride 4.1 bicarb 27 BUN 14 creatinine 0.82 glucose 90 AST 23 ALT 18 Total cholesterol 243 LDL 183 HDL 34 triglycerides 128 urinalysis negative IMAGING: MRI brain with and without contrast 04/22/2019: Moderate nonspecific white matter changes may be on basis of known demyelinating disease. No enhancing lesions are evident. ASSESSMENT: Mr. Lopez, is a 48-year-old man with past medical history of multiple sclerosis, GERD, anxiety, depression, panic disorder, hyperlipidemia, who presented to [facility] for suicidal ideation, consulted neurology for muscle spasm, pain and urinary retention. Patient with subjective L-sided numbness, weakness and pain, which patient endorses occurs with his usual MS flare. At this time, there is no previous medical record of patient's diagnosis of MS and treatment. MRI brain with and without contrast not showing any signs of acute MS flare. RECOMMENDATIONS: 1. Baclofen 5mg TID for muscle spasm is okay 2. Neurology will sign off at this time. Please feel free to contact Neurology again if with additional questions or concerns. 3. Patient states that he has an appointment with Neurology on 04/27/19. Okay to keep this appointment.
[2019-04-23] MEDS: ATORVASTATIN 10 MG TAB PO SCH (08:23)
[2019-04-23] MEDS: NICOTINE 14MG/24HR PATCH TRANSDERM SCH (08:23)
[2019-04-23] MEDS: BACLOFEN 10 MG TAB PO SCH ×3 (08:23→21:05)
[2019-04-23] MEDS: busPIRone HCl 10 MG TAB PO SCH ×2 (08:24→21:05)
[2019-04-23] MEDS: DULoxetine HCL 60 MG CAPSULE.DR PO SCH (08:24)
--- NOTE | 2019-04-23 11:37 | P.PN ---
Progress Note - Text Progress Note Date: 04/23/19 Interval History: Patient was seen in the [facility] area and was agreeable to speak to card writer hand in the office this morning. Patient was cooperative today and was directable. patient states that he does he'll have some depression however claims that his mood has mildly been improving. Patient also admits to ongoing anxiety. Patient stat he slept a bit better last night however still complains of pain. He states that he is going to some of the groups and finding them helpful however is isolating for most of the day. He states that his muscle spasms have improved on the dose of baclofen. Patient continues to be preoccupied with urinary retention and was asking about urologists that he may be able to see. Patient's MRI done yesterday did not show any active lesions. He states his energy level and appetite are fair. At this time patient denies any suicidal or homical ideations, intent or plan. Patient denies any auditory, visual hallucinations and denies any paranoia or delusions. Patient denies any side effects from the medications and has been compliant with meds. Mental Status Exam: General Appearance: Patient appears to be stated age is alert, directable. Patient is in a wheelchair, mild improvement in hygiene and grooming. Behavior: Patient is calmly seated without any agitated behavior. Speech: Patient's speech is fluent and nonpressured. Soft tone Mood/Affect: Mood is improving mildly, affect is congruent and constricted. Suicidality/Homicidality: Patient denies having any suicidal or homicidal ideation intent or plan. Perceptions: Patient denies any auditory or visual hallucinations. Though content/process: There is no evidence of any delusional thought content and thought process is linear and goal-directed. Memory and concentration: AOX3, grossly intact for the purposes of this session Judgment and insight: fair, improving mildly Assessment Major depressive disorder, recurrent, severe Anxiety disorder unspecified Cannabis use disorder Nicotine dependence Plan: -Patient continues to meet criteria for inpatient psychiatric admission for sym ptom stabilization and safety. Patient has signed adult voluntary form and medication consent and was placed in patient's chart. -Medications: Cymbalta 120 mg daily for depression. Will continue with baclofen 5 mg 2 times a day for muscle spasms associated with his MS. We'll continue with BuSpar 20 mg twice a day for anxiety and continue with trazodone 100 mg daily at bedtime for insomnia and mood. -Appreciate Neurology recommendations. Patient underwent MRI of his brain with and without contrast on 04/22/2019 and did not show any active lesions. -Patient has a follow-up appointment scheduled with [place] [facility] on 04/27/2019. -When necessary Ativan for agitation/aggression. -NRT - nicotine patch -Patient was encouraged to partake in groups during the day work on his coping skills and distress tolerance. -SW on board for discharge planning. Likely discharge her early next week.
[2019-04-23] MEDS: PANTOPRAZOLE 40 MG TABLET PO SCH (21:05)
[2019-04-23] MEDS: traZODone HCL 100 MG TAB PO SCH (21:05)
[2019-04-23] MEDS: GABAPENTIN 300 MG CAP PO SCH (21:05)
[2019-04-24 06:39] VITALS: RESP 16
[2019-04-24] MEDS: BACLOFEN 10 MG TAB PO SCH ×3 (08:18→23:06)
[2019-04-24] MEDS: NICOTINE 14MG/24HR PATCH TRANSDERM SCH (08:18)
[2019-04-24] MEDS: ATORVASTATIN 10 MG TAB PO SCH (08:18)
[2019-04-24] MEDS: DULoxetine HCL 60 MG CAPSULE.DR PO SCH (08:19)
[2019-04-24] MEDS: busPIRone HCl 10 MG TAB PO SCH ×2 (08:19→23:05)
[2019-04-24] MEDS: MAGNESIUM HYDROXIDE 2,400 MG/10 ML CUP PO PRN (13:53)
--- NOTE | 2019-04-24 19:41 | P.PN ---
Progress Note - Text Progress Note Date: 04/24/19 IDENTIFICATION DATA: 48-year-old male presented to the mental health unit with suicidal ideation. INTERVAL HISTORY: Patient was seen today. He ambulates in wheel chair due to his MS. He reports to have been doing better today. He claims his medications have been helping him and says his goal is stay medication compliant. He reports good sleep and appetite. He reports to have been going to all his groups and reports good concentration. He rates his depression as 4/10 , 1 being best. He says his anxiety is also under control. Tolerates his medication well. No side effects. MENTAL STATUS EXAMINATION: 48-year old male, appears stated age in fair grooming and hygine. Is alert and oriented 4. Mood is reported as better and affect is broad. Speech and thought processes are linear and goal directed. thought content is negative for suicidal or homicidal ideation. Denies auditory and visual hallucinations. Denies paranoid ideations. insight and judgment are improving Assessment Major depressive disorder recurrent severe without psychosis, panic attacks, Chronic pain Plan Continue Cymbalta 120 mg daily for depression BuSpar 20 mg twice a day for anxiety trazodone 100 mg daily at bedtime for insomnia and mood.
[2019-04-24] MEDS: traZODone HCL 100 MG TAB PO SCH (23:05)
[2019-04-24] MEDS: GABAPENTIN 300 MG CAP PO SCH (23:06)
[2019-04-24] MEDS: PANTOPRAZOLE 40 MG TABLET PO SCH (23:06)
[2019-04-25 06:49] VITALS: BP 129/74; PULSE 93; TEMP 97.8
[2019-04-25] MEDS: NICOTINE 14MG/24HR PATCH TRANSDERM SCH (08:59)
[2019-04-25] MEDS: ATORVASTATIN 10 MG TAB PO SCH (09:00)
[2019-04-25] MEDS: busPIRone HCl 10 MG TAB PO SCH ×2 (09:00→22:48)
[2019-04-25] MEDS: BACLOFEN 10 MG TAB PO SCH ×3 (09:00→22:48)
[2019-04-25] MEDS: DULoxetine HCL 60 MG CAPSULE.DR PO SCH (09:00)
--- NOTE | 2019-04-25 14:37 | P.PN ---
Progress Note - Text Progress Note Date: 04/25/19 IDENTIFICATION DATA: 48-year-old male presented to the mental health unit with suicidal ideation. INTERVAL HISTORY: Patient was seen today. He says his depression is getting better every day and rates it at 3/10, 1 being best. Reports good sleep and appetite. Attends all his groups. Compliant with medications, no side effects reported. MENTAL STATUS EXAMINATION: 48-year old male, appears stated age in fair grooming and hygine. Ambulates in wheel chair. Is alert and oriented 4. Mood is reported as better and affect is broad. Speech and thought processes are linear and goal directed. thought content is negative for suicidal or homicidal ideation. Denies auditory and visual hallucinations. Denies paranoid ideations. insight and judgment are improving Assessment Major depressive disorder recurrent severe without psychosis, panic attacks, Chronic pain Plan Continue Cymbalta 120 mg daily for depression BuSpar 20 mg twice a day for anxiety trazodone 100 mg daily at bedtime for insomnia and mood.
[2019-04-25] MEDS: MAG HYDROX/AL HYDROX/SIMETH 30 ML CUP PO PRN (17:18)
[2019-04-25] MEDS ORDERED: POLYETHYLENE GLYCOL 3350 17 GM POWD.PACK PO STA (18:00)
[2019-04-25] MEDS: PANTOPRAZOLE 40 MG TABLET PO SCH (22:48)
[2019-04-25] MEDS: GABAPENTIN 300 MG CAP PO SCH (22:48)
[2019-04-25] MEDS: traZODone HCL 100 MG TAB PO SCH (22:48)
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
[2019-04-26] MEDS: DULoxetine HCL 60 MG CAPSULE.DR PO SCH (09:01)
[2019-04-26] MEDS: busPIRone HCl 10 MG TAB PO SCH (09:01)
[2019-04-26] MEDS: BACLOFEN 10 MG TAB PO SCH ×2 (09:01→14:32)
[2019-04-26] MEDS: ATORVASTATIN 10 MG TAB PO SCH (09:01)
== END 2019-04-26 14:19 | disposition home or self-care (01) | DRG 885 ==
LOC: EC 08:51 → 3MHU 14:50
PROVIDERS: ADMIT Psychiatry & Neurology Psychiatry; ATTEND Psychiatry & Neurology Psychiatry
DX: F33.2 Major depressive disorder, recurrent severe without psychotic features (principal); R45.851 Suicidal ideations; E78.5 Hyperlipidemia, unspecified; F12.10 Cannabis abuse, uncomplicated; Z71.51 Drug abuse counseling and surveillance of drug abuser; F17.210 Nicotine dependence, cigarettes, uncomplicated; F41.0 Panic disorder [episodic paroxysmal anxiety]; G25.81 Restless legs syndrome; G35 Multiple sclerosis; G47.00 Insomnia, unspecified; G89.29 Other chronic pain; K21.9 Gastro-esophageal reflux disease without esophagitis; K59.00 Constipation, unspecified; Z79.899 Other long term (current) drug therapy; T50.996A Underdosing of other drugs, medicaments and biological substances, initial encounter; Z91.128 Patient's intentional underdosing of medication regimen for other reason; M62.838 Other muscle spasm; R33.9 Retention of urine, unspecified; Z88.1 Allergy status to other antibiotic agents; Z91.040 Latex allergy status
CPT/HCPCS: 36415; 70553; 80048; 80053; 80061; 81003; 82075; 83036; 85025; 93005; 96374; 96375; 99285

== ENCOUNTER 2019-05-07 12:58 | Inpatient (IN) | payer MEDICARE ==
[2019-05-07 13:58] LABS: Basophils % (A) 0 %; Eosinophils # (A) 0.1 k/uL (0-0.7); Eosinophils % (A) 1 %; HCT 41.3 % (39.0-53.0); HGB 14.2 gm/dL (13.0-17.5); Lymphocytes # (A) 2.6 k/uL (1.0-4.8); Lymphocytes % (A) 21 %; MCHC 34.5 g/dL (31.0-37.0); MCV 95.5 fL (80.0-100.0); Monocytes # (A) 0.8 k/uL (0-1.0); Monocytes % (A) 7 %; Neutrophils # (A) 8.7 k/uL (1.3-7.7); Neutrophils % (A) 70 %; Platelet Count 288 k/uL (150-450); RBC 4.32 m/uL (4.30-5.90); RDW 13.4 % (11.5-15.5); WBC 12.4 k/uL (3.8-10.6)
[2019-05-07 14:04] LABS: ALT 15 U/L (21-72); AST 24 U/L (17-59); African American GFR (CKD) >90 (>60 ml/min/1.73 sqM); Albumin 4.2 g/dL (3.5-5.0); Alkaline Phosphatase 55 U/L (38-126); Anion Gap 6 mmol/L; Blood Urea Nitrogen 16 mg/dL (9-20); Calcium 9.3 mg/dL (8.4-10.2); Carbon Dioxide 24 mmol/L (22-30); Chloride 110 mmol/L (98-107); Glucose 99 mg/dL (74-99); Sodium 140 mmol/L (137-145); Total Bilirubin 0.5 mg/dL (0.2-1.3); Total Protein 6.8 g/dL (6.3-8.2)
[2019-05-07 15:17] LABS: Appearance,Urine Clear (Clear); Bilirubin,Urine Negative (Negative); Blood,Urine Negative (Negative); Color,Urine Yellow; Glucose,Urine (UA) Negative (Negative); Ketones,Urine Negative (Negative); Leukocyte Esterase,Urine Negative (Negative); Nitrite,Urine Negative (Negative); Protein,Urine Trace (Negative); Specific Gravity,Urine 1.022 (1.001-1.035); Urobilinogen,Urine <2.0 mg/dL (<2.0)
--- NOTE | 2019-05-07 15:44 | ED ---
General Adult HPI - General Source: patient, EMS Mode of arrival: EMS Limitations: no limitations <Mejia Chen - Last Filed: 05/07/19 18:23> <Gretel Santillan - Last Filed: 05/11/19 15:14> - General Chief complaint: Weakness Stated complaint: increased weakness Time Seen by Provider: 05/07/19 13:24 - History of Present Illness Initial comments: Patient is a 48-year-old male with history of MS is presenting to the emergency department with chief complaint of generalized weakness. Patient reports he has been dealing with MS for about 10 years and continues to have left-sided weakness. However states that he has developed increased pins and needles feeling, and weakness in the left upper and lower extremity over the past month. Patient was evaluated by his neurologist, Dr. Ruiz, who ordered an MRI. MRI of the brain was performed about 2 weeks ago and is indicative of a demyelinating disease. Patient reports there is a plan to receive a 5 day treatment of high-dose steroids at the neurologist's office and he has been awaiting for insurance approval. Patient also reports he has chronic headaches and undergoes occipital nerve blocks for them. Patient denies a headache currently. The is concerned that she cannot take care of the patient home because he is not able to fully ambulate (Mejia Chen) - Related Data Home Medications Medication Instructions Recorded Confirmed Naproxen 500 mg PO BID PRN 05/07/19 05/07/19 Propranolol [Inderal] 40 mg PO BID 05/07/19 05/07/19 Baclofen 10 mg PO TID 05/08/19 05/08/19 Previous Rx's Medication Instructions Recorded DULoxetine HCL [Cymbalta] 120 mg PO DAILY 28 Days capsule. 04/26/19 Gabapentin [Neurontin] 300 mg PO HS 28 Days cap 04/26/19 busPIRone HCl [Buspar] 20 mg PO BID 28 Days tab 04/26/19 traZODone HCL [Desyrel] 100 mg PO HS 28 Days tab 04/26/19 Nicotine 21Mg/24Hr Patch [Habitrol] 1 patch TRANSDERM DAILY #30 patch 05/10/19 Pantoprazole [Protonix] 40 mg PO [id number] 30 Days #30 05/10/19 tablet. Allergies Allergy/AdvReac Type Severity Reaction Status Date / Time Latex, Natural Rubber Allergy Rash/Hives Verified 05/07/19 17:57 metronidazole [From Flagyl] Allergy Unknown Verified 05/07/19 17:57 Review of Systems ROS Other: All systems not noted in ROS Statement are negative. <Mejia Chen - Last Filed: 05/07/19 18:23> ROS Other: All systems not noted in ROS Statement are negative. <Gretel Santillan - Last Filed: 05/11/19 15:14> ROS Statement: Those systems with pertinent positive or pertinent negative responses have been documented in the HPI. Past Medical History Past Medical History: GERD/Reflux, Neurologic Disorder Additional Past Medical History / Comment(s): ms History of Any Multi-Drug Resistant Organisms: None Reported Past Surgical History: No Surgical Hx Reported Past Anesthesia/Blood Transfusion Reactions: No Reported Reaction Past Psychological History: Anxiety, Depression, Panic Disorder Smoking Status: Current every day smoker Past Alcohol Use History: None Reported Past Drug Use History: Marijuana <Mejia Chen - Last Filed: 05/07/19 18:23> General Exam Limitations: no limitations General appearance: alert, in no apparent distress Head exam: Present: atraumatic, normocephalic, normal inspection Eye exam: Present: normal appearance, PERRL, EOMI Pupils: Present: normal accommodation ENT exam: Present: normal exam, normal oropharynx, mucous membranes moist, TM's normal bilaterally, normal external ear exam Neck exam: Present: normal inspection, full ROM Respiratory exam: Present: normal lung sounds bilaterally Cardiovascular Exam: Present: regular rate, normal rhythm, normal heart sounds Extremities exam: Present: normal inspection, normal capillary refill, other (+2 ulnar and radial pulses. +2 dorsalis pedis and posterior tibialis bilaterally.). Absent: full ROM (Limited range of motion of left upper and lower extremities.), tenderness Back exam: Present: normal inspection, full ROM Neurological exam: Present: alert, oriented X3, CN II-XII intact Psychiatric exam: Present: normal affect, normal mood Skin exam: Present: warm, intact, normal color <Mejia Chen - Last Filed: 05/07/19 18:23> Course Vital Signs 05/07/19 05/07/19 05/07/19 13:05 19:34 20:10 Temperature 98.1 F 98.1 F Pulse Rate 91 86 Pulse Rate [ 78 Pulse Oximetery ] Respiratory 18 18 16 Rate Blood Pressure 129/73 125/82 Blood Pressure 129/68 [Left Arm] O2 Sat by Pulse 97 98 99 Oximetry Medical Decision Making - Lab Data Result diagrams: 05/07/19 13:15 05/07/19 13:15 <Mejia Chen - Last Filed: 05/07/19 18:23> - Lab Data Result diagrams: 05/08/19 10:39 05/08/19 10:39 <Gretel Santillan - Last Filed: 05/11/19 15:14> - Medical Decision Making Patient is a 48-year-old male with history of MS is presenting to the emergency department with a chief complaint of weakness. Patient is scheduled to undergo five-day treatment of high-dose steroids at the outpatient clinic at his neurologist office. He was awaiting for insurance approval. However, patient has continuous decrease function in his left upper and lower extremity that prompted him to come to the ED. Physical examination patient has very limited range of motion of the left upper and lower extremity. Patient vascularly intact. Dr. Weaver was contacted and advised the patient be admitted for further medical management. He also advised administration of 1 g of Solu- Medrol. Case discussed with Dr. Santillan (Mejia Chen) I was available for consultation in the emergency department. The history and physical exam were done by the midlevel provider. I was consulted for this patients care. I reviewed the case with the midlevel provider and based on their presentation of the patient, I agree with the assessment, medical decision making and plan of care as documented. I evaluated the patient myself. I discussed the case with Dr. Weaver who recommended hospital admission if the patient has difficulty with ambulation. Chart was dictated using [employer] dictation software. Attempts were made to correct any dictation errors however some typographical errors may persist. (Gretel Santillan) - Lab Data Lab Results 05/07/19 05/07/19 05/07/19 Range/Units 13:15 13:15 15:00 WBC 12.4 H (3.8-10.6) k/uL RBC 4.32 (4.30-5.90) m/uL Hgb 14.2 (13.0-17.5) gm/dL Hct 41.3 (39.0-53.0) % MCV 95.5 (80.0-100.0) fL MCH 33.0 (25.0-35.0) pg MCHC 34.5 (31.0-37.0) g/dL RDW 13.4 (11.5-15.5) % Plt Count 288 (150-450) k/uL Neutrophils % 70 % Lymphocytes % 21 % Monocytes % 7 % Eosinophils % 1 % Basophils % 0 % Neutrophils # 8.7 H (1.3-7.7) k/uL Lymphocytes # 2.6 (1.0-4.8) k/uL Monocytes # 0.8 (0-1.0) k/uL Eosinophils # 0.1 (0-0.7) k/uL Basophils # 0.0 (0-0.2) k/uL Sodium 140 (137-145) mmol/L Potassium 4.0 (3.5-5.1) mmol/L Chloride 110 H (98-107) mmol/L Carbon Dioxide 24 (22-30) mmol/L Anion Gap 6 mmol/L BUN 16 (9-20) mg/dL Creatinine 0.68 (0.66-1.25) mg/dL Est GFR (CKD-EPI)AfAm >90 (>60 ml/min/1.73 sqM) Est GFR (CKD-EPI)NonAf >90 (>60 ml/min/1.73 sqM) Glucose 99 (74-99) mg/dL POC Glucose (mg/dL) (75-99) mg/dL POC Glu Roller Machine Operator ID Calcium 9.3 (8.4-10.2) mg/dL Total Bilirubin 0.5 (0.2-1.3) mg/dL AST 24 (17-59) U/L ALT 15 L (21-72) U/L Alkaline Phosphatase 55 (38-126) U/L Total Protein 6.8 (6.3-8.2) g/dL Albumin 4.2 (3.5-5.0) g/dL Urine Color Yellow Urine Appearance Clear (Clear) Urine pH 6.0 (5.0-8.0) Ur Specific [place] 1.022 (1.001-1.035) Urine Protein Trace H (Negative) Urine Glucose (UA) Negative (Negative) Urine Ketones Negative (Negative) Urine Blood Negative (Negative) Urine Nitrite Negative (Negative) Urine Bilirubin Negative (Negative) Urine Urobilinogen <2.0 (<2.0) mg/dL Ur Leukocyte Esterase Negative (Negative) 05/08/19 05/08/19 05/08/19 Range/Units 10:39 10:39 11:48 WBC 13.4 H (3.8-10.6) k/uL RBC 4.01 L (4.30-5.90) m/uL Hgb 13.3 (13.0-17.5) gm/dL Hct 38.4 L (39.0-53.0) % MCV 95.8 (80.0-100.0) fL MCH 33.1 (25.0-35.0) pg MCHC 34.5 (31.0-37.0) g/dL RDW 13.0 (11.5-15.5) % Plt Count 271 (150-450) k/uL Neutrophils % % Lymphocytes % % Monocytes % % Eosinophils % % Basophils % % Neutrophils # (1.3-7.7) k/uL Lymphocytes # (1.0-4.8) k/uL Monocytes # (0-1.0) k/uL Eosinophils # (0-0.7) k/uL Basophils # (0-0.2) k/uL Sodium 139 (137-145) mmol/L Potassium 4.1 (3.5-5.1) mmol/L Chloride 105 (98-107) mmol/L Carbon Dioxide 24 (22-30) mmol/L Anion Gap 10 mmol/L BUN 18 (9-20) mg/dL Creatinine 0.81 (0.66-1.25) mg/dL Est GFR (CKD-EPI)AfAm >90 (>60 ml/min/1.73 sqM) Est GFR (CKD-EPI)NonAf >90 (>60 ml/min/1.73 sqM) Glucose 271 H (74-99) mg/dL POC Glucose (mg/dL) 222 H (75-99) mg/dL POC Glu Roller Machine Operator ID Rosanne Gomez Calcium 9.6 (8.4-10.2) mg/dL Total Bilirubin (0.2-1.3) mg/dL AST (17-59) U/L ALT (21-72) U/L Alkaline Phosphatase (38-126) U/L Total Protein (6.3-8.2) g/dL Albumin (3.5-5.0) g/dL Urine Color Urine Appearance (Clear) Urine pH (5.0-8.0) Ur Specific [place] (1.001-1.035) Urine Protein (Negative) Urine Glucose (UA) (Negative) Urine Ketones (Negative) Urine Blood (Negative) Urine Nitrite (Negative) Urine Bilirubin (Negative) Urine Urobilinogen (<2.0) mg/dL Ur Leukocyte Esterase (Negative) Disposition Is patient prescribed a controlled substance at d/c from ED?: No Time of Disposition: 18:30 <Mejia Chen - Last Filed: 05/07/19 18:23> <Gretel Santillan - Last Filed: 05/11/19 15:14> Clinical Impression: Exacerbation of multiple sclerosis Disposition: ADMITTED IP TO THIS HOSP Condition: Stable
[2019-05-07] MEDS ORDERED: methylPREDNISolone SOD SUCC 1,000 MG in SODIUM CHLORIDE 0.9% 250 ML IVPB STA (18:31)
[2019-05-07] MEDS ORDERED: NALOXONE 0.4 MG/ML 1 ML VIAL IV PRN (19:11)
[2019-05-07] MEDS: SODIUM CHLORIDE 0.9% 1,000 ML IV SCH (19:34)
[2019-05-07 20:52] VITALS: BMI 20.9
--- NOTE | 2019-05-07 21:04 | P.CNNES ---
History of Present Illness Consult date: 05/07/19 Requesting physician: Nikky Hamilton Reason for Consult: MS exacerbation History of Present Illness: Patient is a 48-year-old male who has been diagnosed with multiple sclerosis about 7-8 years ago. He follows up with Dr. Grossman. Patient states that he has previously tried Avonex, Betaseron and Copaxone. He also tried oral medication. He stopped taking oral medication about 4-5 years ago and has not been on any disease modifying agent. Currently he is being considered to be started on Ocrevus. Patient states that his left side is weaker than the right. However he has been able to ambulate using the cane or the crutches. In the last couple days he has been feeling very weak tired, couldn't get out of the bed and was not able to use his cane or crutches and has been more confined to the wheelchair. He spoke to his neurologist who recommended patient go to the ER for Solu-Medrol treatment. Patient does smoke 2 packs per day for 30 years. Denies any alcohol. Denies marijuana. Patient's hemoglobin A1c 5.5 on 04/17/2019. Liver functions are normal. Total cholesterol is 243, LDL 183, HDL 34 and triglycerides 128. UA is negative. Patient had an MRI of the brain with and without contrast on 04/22/2019, which revealed moderate nonspecific white matter changes, may be on the basis of an old demyelinating disease. No enhancing lesions are evident. Patient was seen by neurology Dr. Torres on 04/21/2019, who initiated an MRI of the brain. Patient was not given steroids at that time. Review of Systems Fatigue, muscle weakness, numbness, tremors. Denies any chest pain shortness of breath wheezing or cough. Denies any dysphagia dysarthria diplopia. Denies facial droop. Denies dysuria. All other review of systems unremarkable. Past Medical History Past Medical History: GERD/Reflux, Neurologic Disorder Additional Past Medical History / Comment(s): ms History of Any Multi-Drug Resistant Organisms: None Reported Past Surgical History: No Surgical Hx Reported Past Anesthesia/Blood Transfusion Reactions: No Reported Reaction Past Psychological History: Anxiety, Depression, Panic Disorder Smoking Status: Current every day smoker Past Alcohol Use History: None Reported Past Drug Use History: Marijuana Additional Drug Use History / Comment(s): not using currently. Medications and Allergies Home Medications Medication Instructions Recorded Confirmed Type Baclofen [Lioresal] 5 mg PO TID 28 Days tab 04/26/19 05/07/19 Rx DULoxetine HCL [Cymbalta] 120 mg PO DAILY 28 Days capsule. 04/26/19 05/07/19 Rx Gabapentin [Neurontin] 300 mg PO HS 28 Days cap 04/26/19 05/07/19 Rx busPIRone HCl [Buspar] 20 mg PO BID 28 Days tab 04/26/19 05/07/19 Rx traZODone HCL [Desyrel] 100 mg PO HS 28 Days tab 04/26/19 05/07/19 Rx Naproxen 500 mg PO BID PRN 05/07/19 05/07/19 History Propranolol [Inderal] 40 mg PO BID 05/07/19 05/07/19 History Allergies Allergy/AdvReac Type Severity Reaction Status Date / Time Latex, Natural Rubber Allergy Rash/Hives Verified 05/07/19 17:57 metronidazole [From Flagyl] Allergy Unknown Verified 05/07/19 17:57 Physical Examination - Vital Signs Vital Signs: Vital Signs Temp Pulse Resp BP Pulse Ox 05/07/19 19:34 86 18 125/82 98 05/07/19 13:05 98.1 F 91 18 129/73 97 Intake and Output 05/07/19 05/07/19 05/07/19 06:59 14:59 22:59 Other: Weight 70.307 kg On examination patient is a middle aged male, in no distress. Patient has a flat affect. Patient is alert and awake oriented to time place and person. Speech and language functions are normal. On cranial examination pupils are round and reactive to light, visual hig[place] are full on confrontation. Face is symmetric and tongue protrudes the midline. On muscle strength testing patient has left pronator drift. He has tremors of outstretched hands. 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 Ankle dorsiflexion 5/4. Hip flexion is 4/4-. Reflexes are somewhat brisk in the lower limbs and plantars are downgoing. No ataxia for [id number] testing although patient is tremulous. Tone and bulk of muscles normal. Results - Laboratory Findings CBC and BMP: 05/07/19 13:15 05/07/19 13:15 Abnormal Lab Findings: Abnormal Labs 05/07/19 05/07/19 05/07/19 13:15 13:15 15:00 WBC 12.4 H Neutrophils # 8.7 H Chloride 110 H ALT 15 L Urine Protein Trace H Assessment and Plan Assessment: * Probable MS exacerbation. * History of relapsing remitting MS. * Tobacco use * Hyperlipidemia Plan: * Start Solu-Medrol 1 g IVPB daily for 5 days. * Neurology coverage not available on the weekend. * Counseled about tobacco cessation. * Dr. Torres Will resume inpatient neurocare from 05/10/2019. * Thank you very much for allowing me to participate in care of your patient.
[2019-05-07] MEDS: NICOTINE 21MG/24HR PATCH TRANSDERM SCH (22:25)
[2019-05-07] MEDS: GABAPENTIN 300 MG CAP PO SCH (22:25)
[2019-05-07] MEDS: traZODone HCL 100 MG TAB PO SCH (22:25)
[2019-05-07] MEDS: BACLOFEN 10 MG TAB PO SCH (22:25)
[2019-05-07] MEDS: PROPRANOLOL 40 MG TAB PO SCH (22:26)
[2019-05-07] MEDS: busPIRone HCl 10 MG TAB PO SCH (22:26)
[2019-05-08] MEDS: BACLOFEN 10 MG TAB PO SCH ×4 (09:35→21:22)
[2019-05-08] MEDS: methylPREDNISolone SOD SUCC 1,000 MG in SODIUM CHLORIDE 0.9% 250 ML IVPB SCH (10:09)
[2019-05-08] MEDS: busPIRone HCl 10 MG TAB PO SCH ×2 (10:09→20:32)
[2019-05-08] MEDS: DULoxetine HCL 60 MG CAPSULE.DR PO SCH (10:09)
[2019-05-08] MEDS: NICOTINE 21MG/24HR PATCH TRANSDERM SCH (10:10)
[2019-05-08] MEDS: PROPRANOLOL 40 MG TAB PO SCH ×2 (10:10→21:13)
[2019-05-08] MEDS: SODIUM CHLORIDE 0.9% 1,000 ML IV SCH ×2 (10:10→21:23)
[2019-05-08 11:26] LABS: HCT 38.4 % (39.0-53.0); HGB 13.3 gm/dL (13.0-17.5); MCH 33.1 pg (25.0-35.0); MCHC 34.5 g/dL (31.0-37.0); MCV 95.8 fL (80.0-100.0); Mean Platelet Volume 5.9; Platelet Count 271 k/uL (150-450); RBC 4.01 m/uL (4.30-5.90); WBC 13.4 k/uL (3.8-10.6)
[2019-05-08 11:42] LABS: African American GFR (CKD) >90 (>60 ml/min/1.73 sqM); Anion Gap 10 mmol/L; Blood Urea Nitrogen 18 mg/dL (9-20); Calcium 9.6 mg/dL (8.4-10.2); Carbon Dioxide 24 mmol/L (22-30); Chloride 105 mmol/L (98-107); Glucose 271 mg/dL (74-99); Potassium 4.1 mmol/L (3.5-5.1); Sodium 139 mmol/L (137-145)
[2019-05-08 11:50] LABS: Glucose,Whole Blood 222 mg/dL (75-99)
[2019-05-08] MEDS: INSULIN ASPART (NovoLOG) 100 UNIT/ML VIAL SQ SCH ×3 (11:57→21:14)
[2019-05-08 16:37] LABS: Glucose,Whole Blood 133 mg/dL (75-99)
[2019-05-08] MEDS: PANTOPRAZOLE 40 MG/10 ML VIAL IVP SCH (16:37)
--- NOTE | 2019-05-08 17:11 | P.HPIM ---
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 Patient was having tremors as well which are much worse for last 2-3 days. Patient had an MRI in April 22 which revealed moderate nonspecific white matter changes probably old demyelinating disease. Because of which patient was not given steroids at that time. Review of Systems REVIEW OF SYSTEMS: CONSTITUTIONAL: No fever, no malaise, no fatigue. HEENT: No recent visual problems or hearing problems. Denied any sore throat. CARDIOVASCULAR: No chest pain, orthopnea, PND, no palpitations, no syncope. PULMONARY: No shortness of breath, no cough, no hemoptysis. GASTROINTESTINAL: No diarrhea, no nausea, no vomiting, no abdominal pain. NEUROLOGICAL: as mentioned in HPI HEMATOLOGICAL: Denies any bleeding or petechiae. GENITOURINARY: Denies any burning micturition, frequency, or urgency. MUSCULOSKELETAL/RHEUMATOLOGICAL: Denies any joint pain, swelling, or any muscle pain. ENDOCRINE: Denies any polyuria or polydipsia. The rest of the 14-point review of systems is negative. Past Medical History Past Medical History: GERD/Reflux, Neurologic Disorder Additional Past Medical History / Comment(s): ms History of Any Multi-Drug Resistant Organisms: None Reported Past Surgical History: No Surgical Hx Reported Past Anesthesia/Blood Transfusion Reactions: No Reported Reaction Past Psychological History: Anxiety, Depression, Panic Disorder Smoking Status: Current every day smoker Past Alcohol Use History: None Reported Past Drug Use History: Marijuana Additional Drug Use History / Comment(s): not using currently. Medications and Allergies Home Medications Medication Instructions Recorded Confirmed Type DULoxetine HCL [Cymbalta] 120 mg PO DAILY 28 Days capsule. 04/26/19 05/07/19 Rx Gabapentin [Neurontin] 300 mg PO HS 28 Days cap 04/26/19 05/07/19 Rx busPIRone HCl [Buspar] 20 mg PO BID 28 Days tab 04/26/19 05/07/19 Rx traZODone HCL [Desyrel] 100 mg PO HS 28 Days tab 04/26/19 05/07/19 Rx Naproxen 500 mg PO BID PRN 05/07/19 05/07/19 History Propranolol [Inderal] 40 mg PO BID 05/07/19 05/07/19 History Baclofen 10 mg PO TID 05/08/19 05/08/19 History Allergies Allergy/AdvReac Type Severity Reaction Status Date / Time Latex, Natural Rubber Allergy Rash/Hives Verified 05/07/19 17:57 metronidazole [From Flagyl] Allergy Unknown Verified 05/07/19 17:57 Physical Exam Vitals: Vital Signs Temp Pulse Pulse Resp BP BP Pulse Ox 05/08/19 13:40 97.6 F 93 16 115/64 97 05/08/19 04:35 97.7 F 90 16 116/68 97 05/07/19 20:10 98.1 F 78 16 129/68 99 05/07/19 19:34 86 18 125/82 98 Intake and Output 05/08/19 05/08/19 05/08/19 06:59 14:59 22:59 Intake Total 540 Output Total 400 1200 Balance -400 -660 Intake: Oral 540 Output: Urine 400 1200 Other: Voiding Method Toilet PHYSICAL EXAMINATION: GENERAL: The patient is alert and oriented x3, not in any acute distress. Well developed, well nourished. patient has a baseline tremor HEENT: Pupils are round and equally reacting to light. EOMI. No scleral icterus. No conjunctival pallor. Normocephalic, atraumatic. No pharyngeal erythema. No thyromegaly. CARDIOVASCULAR: S1 and S2 present. No murmurs, rubs, or gallops. PULMONARY: Chest is clear to auscultation, no wheezing or crackles. ABDOMEN: Soft, nontender, nondistended, normoactive bowel sounds. No palpable organomegaly. MUSCULOSKELETAL: No joint swelling or deformity. EXTREMITIES: No cyanosis, clubbing, or pedal edema. NEUROLOGICAL: patient has tremor strength in left leg is 4/5 both upper arms appears to be 5/5. Didn't examine sensory system please refer to neurologist documentation SKIN: No rashes. Results CBC & Chem 7: 05/08/19 10:39 05/08/19 10:39 Labs: Abnormal Lab Results - Last 24 Hours (Table) 05/08/19 05/08/19 05/08/19 Range/Units 10:39 10:39 11:48 WBC 13.4 H (3.8-10.6) k/uL RBC 4.01 L (4.30-5.90) m/uL Hct 38.4 L (39.0-53.0) % Glucose 271 H (74-99) mg/dL POC Glucose (mg/dL) 222 H (75-99) mg/dL 05/08/19 Range/Units 16:35 WBC (3.8-10.6) k/uL RBC (4.30-5.90) m/uL Hct (39.0-53.0) % Glucose (74-99) mg/dL POC Glucose (mg/dL) 133 H (75-99) mg/dL Thrombosis Risk Factor Assmnt - Choose All That Apply Each Factor Represents 1 point: Age 41-60 years Thrombosis Risk Factor Assessment Total Risk Factor Score: 1 Thrombosis Risk Factor Assessment Level: Low Risk Assessment and Plan Plan: possible exacerbation of multiple sclerosis patient was started on systemic st eroids for 5 days which she'll continue -Hyperlipidemia -Continue nicotine use: Counseling was provided -gastroesophageal reflux disease patient will be resumed on Protonix -Depression
[2019-05-08] MEDS: POLYETHYLENE GLYCOL 3350 17 GM POWD.PACK PO SCH (20:32)
[2019-05-08] MEDS: traZODone HCL 100 MG TAB PO SCH (20:32)
[2019-05-08] MEDS: GABAPENTIN 300 MG CAP PO SCH (20:32)
[2019-05-08 21:03] LABS: Glucose,Whole Blood 183 mg/dL (75-99)
[2019-05-09 07:18] LABS: Glucose,Whole Blood 149 mg/dL (75-99)
[2019-05-09] MEDS: PANTOPRAZOLE 40 MG/10 ML VIAL IVP SCH (08:38)
[2019-05-09] MEDS: NICOTINE 21MG/24HR PATCH TRANSDERM SCH (08:38)
[2019-05-09] MEDS: INSULIN ASPART (NovoLOG) 100 UNIT/ML VIAL SQ SCH ×4 (08:38→20:29)
[2019-05-09] MEDS: PROPRANOLOL 40 MG TAB PO SCH ×2 (08:38→20:31)
[2019-05-09] MEDS: BACLOFEN 10 MG TAB PO SCH ×3 (08:38→20:29)
[2019-05-09] MEDS: busPIRone HCl 10 MG TAB PO SCH ×2 (08:38→20:29)
[2019-05-09] MEDS: DULoxetine HCL 60 MG CAPSULE.DR PO SCH (08:38)
[2019-05-09] MEDS: methylPREDNISolone SOD SUCC 1,000 MG in SODIUM CHLORIDE 0.9% 250 ML IVPB SCH (08:39)
[2019-05-09 11:52] LABS: Glucose,Whole Blood 131 mg/dL (75-99)
[2019-05-09] MEDS: SODIUM CHLORIDE 0.9% 1,000 ML IV SCH ×2 (12:51→23:20)
--- NOTE | 2019-05-09 16:05 | P.PN ---
Subjective 48-year-old gentleman was admitted and being treated for MS exacerbation is main symptoms are increased tremor which is improving and weakness on the left side predominantly in the left leg both of which are improving at this time. Patient feels much better today. Patient will be switched to 1 g of steroid tomorrow patient is wishing to go home tomorrow if you have first dose of IV steroids tomorrow discharged to follow up with his neurologist as an outpatient. Constitutional: Denied any fatigue denied any fever. Cardio vascular: denied any chest pain, palpitations Gastrointestinal denied any nausea vomiting Pulmonary: Denied any shortness of breath cough Neurologic as mentioned in HPI All inpatient medications were reviewed and appropriate changes in these medications as dictated in the interval history and assessment and plan. Objective - Vital Signs Vital signs: Vital Signs Temp 97.9 F 05/09/19 13:01 Pulse 97 05/09/19 13:01 Resp 16 05/09/19 13:01 BP 114/67 05/09/19 13:01 Pulse Ox 96 05/09/19 13:01 Intake & Output 05/08/19 05/09/19 05/09/19 18:59 06:59 18:59 Intake Total 540 540 Output Total 1200 1400 800 Balance -660 -1400 -260 Intake: Oral 540 540 Output: Urine 1200 1400 800 - Exam PHYSICAL EXAMINATION: GENERAL: The patient is alert and oriented x3, not in any acute distress. Well developed, well nourished. patient has a baseline tremor HEENT: Pupils are round and equally reacting to light. EOMI. No scleral icterus. No conjunctival pallor. Normocephalic, atraumatic. No pharyngeal erythema. No thyromegaly. CARDIOVASCULAR: S1 and S2 present. No murmurs, rubs, or gallops. PULMONARY: Chest is clear to auscultation, no wheezing or crackles. ABDOMEN: Soft, nontender, nondistended, normoactive bowel sounds. No palpable organomegaly. MUSCULOSKELETAL: No joint swelling or deformity. EXTREMITIES: No cyanosis, clubbing, or pedal edema. NEUROLOGICAL: patient has tremor strength in left leg is 4/5 both upper arms appears to be 5/5. Didn't examine sensory system please refer to neurologist documentation or all that appears to be improved weakness in the left side and tumor SKIN: No rashes. - Labs CBC & Chem 7: 05/08/19 10:39 10/26/19 10:39 Labs: Abnormal Lab Results - Last 24 Hours (Table) 05/08/19 05/08/19 05/09/19 Range/Units 16:35 21:02 07:15 POC Glucose (mg/dL) 133 H 183 H 149 H (75-99) mg/dL 05/09/19 Range/Units 11:48 POC Glucose (mg/dL) 131 H (75-99) mg/dL Assessment and Plan Plan: possible exacerbation of multiple sclerosis patient was started on systemic steroids for 5 days which will be continued probably will be switched to 1 g Solu-Medrol give him a dose tomorrow and possibility of discharge after that and he can follow up with neurology as an outpatient for IV steroids. -Hyperlipidemia -Continue nicotine use: Counseling was provided -gastroesophageal reflux disease patient will be resumed on Protonix -Depression
[2019-05-09 17:00] LABS: Glucose,Whole Blood 150 mg/dL (75-99)
[2019-05-09 20:13] LABS: Glucose,Whole Blood 185 mg/dL (75-99)
[2019-05-09] MEDS: traZODone HCL 100 MG TAB PO SCH (20:29)
[2019-05-09] MEDS: GABAPENTIN 300 MG CAP PO SCH (20:29)
[2019-05-09] MEDS: POLYETHYLENE GLYCOL 3350 17 GM POWD.PACK PO SCH (20:29)
[2019-05-10 05:31] VITALS: BP 128/66; PULSE 86; RESP 20; TEMP 97.6
[2019-05-10 07:19] LABS: Glucose,Whole Blood 140 mg/dL (75-99)
[2019-05-10] MEDS ORDERED: PANTOPRAZOLE 40 MG TABLET PO SCH (07:30)
[2019-05-10] MEDS: INSULIN ASPART (NovoLOG) 100 UNIT/ML VIAL SQ SCH (07:35)
[2019-05-10] MEDS: BACLOFEN 10 MG TAB PO SCH (07:37)
[2019-05-10] MEDS: DULoxetine HCL 60 MG CAPSULE.DR PO SCH (07:37)
[2019-05-10] MEDS: NICOTINE 21MG/24HR PATCH TRANSDERM SCH (07:37)
[2019-05-10] MEDS: busPIRone HCl 10 MG TAB PO SCH (07:38)
[2019-05-10] MEDS: PROPRANOLOL 40 MG TAB PO SCH (07:38)
[2019-05-10] MEDS ORDERED: methylPREDNISolone SOD SUCC 1,000 MG in SODIUM CHLORIDE 0.9% 250 ML IVPB SCH (09:00)
--- NOTE | 2019-05-11 09:00 | P.DS ---
Providers Date of admission: 05/08/19 13:49 Expected date of discharge: 05/10/19 Attending physician: Nikky Hamilton Consults: 05/07/19 19:11 Consult Physician Stat Consulting Provider: Mundo Martines Reason/Comments: Multiple sclerosis exacerbation Do you want consulting provider notified?: Yes Primary care physician: Eldon Arbour-Hri Hospital Course: Final diagnosis -possible exacerbation of multiple sclerosis -Hyperlipidemia -Continue nicotine use: Counseling was provided -gastroesophageal reflux disease -Depression Discharge disposition Patient is being discharged in a stable condition with guarded prognosis to home. Patient will follow-up with primary care provider as well as neurology upon discharge . Patient will follow-up at the infusion center for 1 more dose of IV steroids. Total time taken is 35 minutes. History of present illness This is a 48-year-old male who was recently admitted and being treated for an MS exacerbation with an increased tremor and weakness of the left side and was being closely monitored. Patient received IV steroids in the form of 1 g of Solu-Medrol and will continue to follow with neurology for the last dose of steroids in the morning. Patient's weakness of the left side along with the tremors have improved and the patient would like to go home today. Patient states that he has a court appointment tomorrow may be possibly going to detention. Patient will follow-up at the infusion center for his steroids in the morning and follow with neurology in the outpatient setting upon discharge. Currently patient's condition is stable with much improvement and is ready for discharge today. When discussing with the patient about possible Homecare for continued PT/OT, patient stated that he is able to perform all of his ADLs on his own with no difficulty and is not requiring PT/OT at this time. Patient denies any chest pain, shortness of breath, or palpitations at this time. Patient is afebrile. Patient denies any nausea or vomiting and is tolerating diet. Guarded prognosis. On exam vital signs are stable. Blood pressure is 128/66 , pulse is 86 , Respirations are 20, temp is 97.6 degrees Fahrenheit, oxygen saturation is 97 % on room air. Cardio S1 and S2 are present. Respiratory system shows clear to auscultation.. Abdomen is soft and non-tender. Nervous system shows no focal deficits. Please refer to medication reconciliation sheet for a list of medications. Patient Condition at Discharge: Stable Plan - Discharge Summary Discharge Rx Participant: No New Discharge Prescriptions: New Nicotine 21Mg/24Hr Patch [Habitrol] 1 patch TRANSDERM DAILY #30 patch Pantoprazole [Protonix] 40 mg PO AC-BRKFST 30 Days #30 tablet.dr Leahy busPIRone HCl [Buspar] 20 mg PO BID 28 Days tab DULoxetine HCL [Cymbalta] 120 mg PO DAILY 28 Days capsule. traZODone HCL [Desyrel] 100 mg PO HS 28 Days tab Gabapentin [Neurontin] 300 mg PO HS 28 Days cap Propranolol [Inderal] 40 mg PO BID Naproxen 500 mg PO BID PRN PRN Reason: Pain Baclofen 10 mg PO TID Discharge Medication List DULoxetine HCL [Cymbalta] 120 mg PO DAILY 28 Days capsule. 04/26/19 [Rx] Gabapentin [Neurontin] 300 mg PO HS 28 Days cap 04/26/19 [Rx] busPIRone HCl [Buspar] 20 mg PO BID 28 Days tab 04/26/19 [Rx] traZODone HCL [Desyrel] 100 mg PO HS 28 Days tab 04/26/19 [Rx] Naproxen 500 mg PO BID PRN 05/07/19 [History] Propranolol [Inderal] 40 mg PO BID 05/07/19 [History] Baclofen 10 mg PO TID 05/08/19 [History] Nicotine 21Mg/24Hr Patch [Habitrol] 1 patch TRANSDERM DAILY #30 patch 05/10/19 [Rx] Pantoprazole [Protonix] 40 mg PO AC-BRKFST 30 Days #30 tablet. 05/10/19 [Rx] Follow up Appointment(s)/Referral(s): Armen Weaver MD [Medical Doctor] - 05/11/19 10:30 am (IV steroids ) Eldon Hagen DO [Primary Care Provider] - 1-2 days (Patient said he will make his own follow up appointment.) Patient Instructions/Handouts: Multiple Sclerosis (DC) Activity/Diet/Wound Care/Special Instructions: activity as tolerated regular diet as tolerated finish IV steroids at Dr metcalf office. appointment is scheduled for tomorrow morning 05/11/2019 1030 Discharge Disposition: HOME SELF-CARE
== END 2019-05-10 12:15 | disposition home or self-care (01) | DRG 60 ==
LOC: EC 12:58 → 4MS4W 19:08 → OBSVTOIN 05-08 13:49
PROVIDERS: ADMIT Hospitalist; ATTEND Hospitalist
DX: G35 Multiple sclerosis (principal); E78.5 Hyperlipidemia, unspecified; F17.200 Nicotine dependence, unspecified, uncomplicated; F32.9 Major depressive disorder, single episode, unspecified; K21.9 Gastro-esophageal reflux disease without esophagitis; Z79.899 Other long term (current) drug therapy; F41.9 Anxiety disorder, unspecified; Z91.040 Latex allergy status; Z88.1 Allergy status to other antibiotic agents; Z71.6 Tobacco abuse counseling
CPT/HCPCS: 36415; 80048; 80053; 81003; 85025; 85027; 96365; 99285

== ENCOUNTER → 2019-05-10 | Outpatient (CLI) | payer MEDICARE ==
[2019-05-10 13:26] LABS: Basophils % (A) 0 %; Eosinophils % (A) 0 %; HCT 41.7 % (39.0-53.0); HGB 14.4 gm/dL (13.0-17.5); Lymphocytes # (A) 0.9 k/uL (1.0-4.8); Lymphocytes % (A) 4 %; MCHC 34.5 g/dL (31.0-37.0); MCV 95.6 fL (80.0-100.0); Mean Platelet Volume 5.8; Monocytes # (A) 0.6 k/uL (0-1.0); Monocytes % (A) 3 %; Neutrophils # (A) 20.4 k/uL (1.3-7.7); Neutrophils % (A) 93 %; Platelet Count 275 k/uL (150-450); RBC 4.36 m/uL (4.30-5.90); RDW 13.3 % (11.5-15.5)
[2019-05-10 18:40] LABS: African American GFR (CKD) 121.6 (60.0-200.0); Albumin 4.4 g/dL (3.80-4.90); Albumin/Globulin Ratio 2.59 (1.60-3.17); BUN/Creat Ratio 22.5 Ratio (12.00-20.00); Calcium 9.2 mg/dL (8.7-10.3); Globulin 1.7 g/dL (1.6-3.3); Potassium 3.8 mmol/L (3.5-5.5); Total Bilirubin 0.4 mg/dL (0.3-1.2); Total Protein 6.1 g/dL (6.2-8.2)
[2019-05-10 20:17] LABS: Hepatitis B Core IgM Non-Reactive (Non-Reactive); Hepatitis B Surface AB- Quant 3.5 mIU/mL; Hepatitis B Surface Antibody Non-Reactive (Non-Reactive); Hepatitis B Surface Antigen Non-Reactive (Non-Reactive)
== END | disposition home or self-care (01) ==
LOC: LABWHC1 12:42
PROVIDERS: ATTEND Nurse Practitioner Acute Care
DX: G35 Multiple sclerosis (principal); E55.9 Vitamin D deficiency, unspecified
CPT/HCPCS: 36415; 80053; 82306; 85025; 86704; 86705; 86706; 86787; 87340

== ENCOUNTER → 2021-02-02 | Outpatient (CLI) | payer MEDICARE ==
--- NOTE | 2021-02-03 03:21 | MR ---
EXAMINATION TYPE: MR brain wo/w con DATE OF EXAM: 02/02/2021 COMPARISON: 04/22/2019 HISTORY: Hx of MS, Recurrent Weakness and dizziness CONTRAST: Standard multiplanar, multisequence MRI departmental protocol utilizing 9.5 mL intravenous Gadavist g adolinium contrast. Ventricles have normal size. There is no mass effect nor midline shift. There is no sign of intracran ial hemorrhage. Diffusion images show no evidence of an acute infarct. On the T2 and FLAIR images the re are multiple small foci of increased signal at the castaneda-white matter junction of both cerebral hem ispheres. These are concentrated more in the frontal lobes. Most of these measure less than 5 mm and total number is approximately 30. The brainstem is intact. Contrast images show no pathologic enhancement. There is normal enhancement of the venous sinuses. Sella turcica appears normal. There is no evidence of orbital mass. IMPRESSION: Numerous nonenhancing small white matter high signal foci concentrated more in the frontal and pariet al lobes and consistent with microvascular ischemia or demyelinating disease. The appearance is not s ignificantly different than old exam. I do not see a a significant new disease.
== END | disposition home or self-care (01) ==
LOC: RADMRIMAIN 18:29
PROVIDERS: ATTEND Psychiatry & Neurology Neurology
DX: I67.82 Cerebral ischemia (principal); G37.9 Demyelinating disease of central nervous system, unspecified; G35 Multiple sclerosis
CPT/HCPCS: 70553; A9585